=== PATIENT | male | born 1970 | race Caucasian/White ===

== ENCOUNTER 2018-12-09 05:55 | Emergency (ER) | payer SELFPAY ==
[~2018-12-09] VITALS: Ht 193 cm; Wt 106.6 kg
--- NOTE | 2018-12-09 06:05 | NUR ---
Pt came to emergency dept. complaining of an allergic reaction that started at midnight. Pt face is showing redness with periorbital edema, swelling of the lips. Pt states that he is not having any trouble breathing or swelling of the tongue and throat. Pt respirations are even and unlabored. Pt saturating at 100%. Pt AAXO4. Pt put on continuous monitor and pulse ox. Pending eval from ER .
--- NOTE | 2018-12-09 06:25 | NUR ---
PARIS HARPER at bedside for Eval.
[2018-12-09] MEDS ORDERED: methylPREDNISolone SOD SUCC 125 MG/2ML VIAL ONE (06:40)
[2018-12-09] MEDS ORDERED: diphenhydrAMINE HCL 50 MG/ML VIAL ONE (06:40)
[2018-12-09] MEDS ORDERED: EPINEPHRINE (1:1000) 1 MG/ML AMPUL ONE (06:40)
[2018-12-09] MEDS ORDERED: FAMOTIDINE/PF INJ 20 MG/2 ML VIAL IV ONE (06:41)
--- NOTE | 2018-12-09 06:45 | NUR ---
Pt states he is afraid of needles, and felt dizzy once 20G LAC was converted to saline lock. Pt AAXO4. Respirations even and unlabored.
[2018-12-09] MEDS ORDERED: EPINEPHRINE (1:1000) MDV 30 MG/30ML VIAL SUBCUT ONE (07:00)
[2018-12-09] MEDS ORDERED: IV NS 0.9% 1,000 ML BAG IV ONE (07:00)
[2018-12-09] MEDS ORDERED: methylPREDNISolone SOD SUCC 125 MG/2ML VIAL IV ONE (07:00)
[2018-12-09] MEDS ORDERED: diphenhydrAMINE HCL 50 MG/ML VIAL IV ONE (07:00)
[2018-12-09] MEDS ORDERED: FAMOTIDINE/PF INJ 40 MG in IV D5W 250 ML IV ONE (07:00)
--- NOTE | 2018-12-09 07:00 | NUR ---
Pt on the continuous monitor. VSS. Family at bedside.
--- NOTE | 2018-12-09 07:25 | NUR ---
Report given to Luis Fernando NEVAREZ for [facility].
--- NOTE | 2018-12-09 07:26 | NUR ---
RECEIVED REPORT FROM ROQUE GONZALEZ FOR [facility]. NOTED SWELLING ON THE FACE, WITH ONGOING IV FLUIDS AND MEDS, V/S STABLE, KEPT RESTED AND COMFORTABLE, WILL CONTINUE TO MONITOR.
[2018-12-09 08:19] VITALS: BP 120/81
--- NOTE | 2018-12-09 08:19 | NUR ---
IV removed. Catheter intact and site benign. Pressure and 4x4 applied to site. No bleeding noted. Patient discharged to home in stable condition. Written and verbal after care instructions given. Patient verbalizes understanding of instruction.
== END 2018-12-09 08:20 | disposition home or self-care (01) ==
LOC: ER 05:59
DX: T78.1XXA Other adverse food reactions, not elsewhere classified, initial encounter (principal); H05.222 Edema of left orbit; R22.0 Localized swelling, mass and lump, head; X58.XXXA Exposure to other specified factors, initial encounter
CPT/HCPCS: J0171; J1200; J2930; J3490; J7030; J7060